=== PATIENT | female | born 1955 | race Caucasian/White ===

== ENCOUNTER 2024-03-20 21:01 | Inpatient (IN) | payer OTHER, MEDICAID ==
[~2024-03-20] VITALS: Ht 154.9 cm; Wt 39.0 kg
[2024-03-20 21:23] VITALS: BP_SYST 134; PULSE 103; RESP 16; TEMP 98.3; O2SAT 99
[2024-03-21 00:42] LABS: EOSINOPHILS % (AUTO) 0.4 % (0.0-4.0); NEUTROPHILS # (AUTO) 11.2 K/uL (1.8-7.7); PLATELET COUNT (AUTO) 250 K/uL (130-430)
[2024-03-21 00:58] LABS: BASOPHILS % (AUTO) 0.4 % (0.0-2.0); EOSINOPHILS # (AUTO) 0.1 K/uL (0.0-0.4); INR 1.1 (0.8-1.2); LYMPHOCYTES # (AUTO) 0.5 K/uL (1.0-5.5); LYMPHOCYTES % (AUTO) 3.8 % (20.5-51.5); MEAN CORPUSCULAR HEMOGLOBIN 25 pg (27-31); MEAN CORPUSCULAR HGB CONC 33 % (32-36); MEAN CORPUSCULAR VOLUME 78 fL (79.0-98.0); MONOCYTES # (AUTO) 0.8 K/uL (0.0-1.0); MONOCYTES % (AUTO) 6.1 % (1.7-9.3); NEUTROPHILS % (AUTO) 89.3 % (40.0-70.0); PROTHROMBIN TIME 11.1 SECS (9.5-12.5); RED BLOOD CELL COUNT(AUTO) 2.58 MIL/uL (4.2-6.2); RED CELL DISTRIBUTION WIDTH 20.1 % (9.0-15.0); WHITE BLOOD COUNT (AUTO) 12.5 K/uL (4.8-10.8)
[2024-03-21 01:01] LABS: ALBUMIN 2.2 g/dL (3.4-4.8); BILIRUBIN,DIRECT 0.1 mg/dL (0.0-0.3); CALCIUM 8.7 mg/dL (8.4-11.0); CREATININE 1.29 mg/dL (0.55-1.30); TOTAL BILIRUBIN 0.4 mg/dL (0.0-1.0); TOTAL PROTEIN, SERUM 7.2 g/dL (6.4-8.3)
[2024-03-21 01:03] LABS: HEMOGLOBIN 6.5 g/dL (12.0-16.0)
[2024-03-21] MEDS ORDERED: cefTRIAXone 1 GM VIAL IV ONE (02:15)
[2024-03-21] MEDS: cefTRIAXone 1 GM IVPB PREMIX 50 ML IV ONE (02:57)
[2024-03-21 03:01] LABS: INR 1.1 (0.8-1.2)
[2024-03-21] MEDS: NACL 0.9% 1,000 ML IV SCH (03:01)
[2024-03-21 10:17] LABS: BASOPHILS # (AUTO) 0.1 K/uL (0.0-0.2); BASOPHILS % (AUTO) 0.5 % (0.0-2.0); EOSINOPHILS # (AUTO) 0.1 K/uL (0.0-0.4); EOSINOPHILS % (AUTO) 0.5 % (0.0-4.0); HEMATOCRIT 24.6 % (36-48); HEMOGLOBIN 8.4 g/dL (12.0-16.0); LYMPHOCYTES # (AUTO) 0.5 K/uL (1.0-5.5); LYMPHOCYTES % (AUTO) 4.5 % (20.5-51.5); MEAN CORPUSCULAR HEMOGLOBIN 27 pg (27-31); MEAN CORPUSCULAR HGB CONC 34 % (32-36); MEAN CORPUSCULAR VOLUME 80 fL (79.0-98.0); MONOCYTES # (AUTO) 0.5 K/uL (0.0-1.0); MONOCYTES % (AUTO) 4.4 % (1.7-9.3); NEUTROPHILS # (AUTO) 10.9 K/uL (1.8-7.7); NEUTROPHILS % (AUTO) 90.1 % (40.0-70.0); PLATELET COUNT (AUTO) 260 K/uL (130-430); RED BLOOD CELL COUNT(AUTO) 3.06 MIL/uL (4.2-6.2); RED CELL DISTRIBUTION WIDTH 19.2 % (9.0-15.0); WHITE BLOOD COUNT (AUTO) 12.1 K/uL (4.8-10.8)
[2024-03-21 10:39] LABS: ALBUMIN 2.3 g/dL (3.4-4.8); CALCIUM 8.8 mg/dL (8.4-11.0); CREATININE 1.13 mg/dL (0.55-1.30); POTASSIUM 3.7 mmol/L (3.5-5.1); TOTAL BILIRUBIN 0.7 mg/dL (0.0-1.0); TOTAL PROTEIN, SERUM 7.4 g/dL (6.4-8.3)
[2024-03-21 12:00] VITALS: BP_SYST 153; PULSE 98; RESP 18; TEMP 97.7; O2SAT 98
[2024-03-21 15:15] VITALS: BP_SYST 152; PULSE 99; RESP 18; TEMP 98.4; O2SAT 99
[2024-03-21 20:00] VITALS: BP_SYST 142; PULSE 104; RESP 18; TEMP 98.9; O2SAT 98
[2024-03-22 00:21] VITALS: BP_SYST 118; PULSE 99; RESP 15; TEMP 97.9; O2SAT 98
[2024-03-22 07:31] LABS: BASOPHILS # (AUTO) 0.1 K/uL (0.0-0.2); BASOPHILS % (AUTO) 0.4 % (0.0-2.0); EOSINOPHILS # (AUTO) 0.1 K/uL (0.0-0.4); EOSINOPHILS % (AUTO) 0.7 % (0.0-4.0); HEMATOCRIT 23.7 % (36-48); HEMOGLOBIN 7.5 g/dL (12.0-16.0); LYMPHOCYTES # (AUTO) 0.5 K/uL (1.0-5.5); LYMPHOCYTES % (AUTO) 4.3 % (20.5-51.5); MEAN CORPUSCULAR HEMOGLOBIN 25 pg (27-31); MEAN CORPUSCULAR HGB CONC 32 % (32-36); MEAN CORPUSCULAR VOLUME 80 fL (79.0-98.0); MONOCYTES # (AUTO) 0.6 K/uL (0.0-1.0); MONOCYTES % (AUTO) 5.5 % (1.7-9.3); NEUTROPHILS # (AUTO) 10.4 K/uL (1.8-7.7); NEUTROPHILS % (AUTO) 89.1 % (40.0-70.0); PLATELET COUNT (AUTO) 262 K/uL (130-430); RED BLOOD CELL COUNT(AUTO) 2.95 MIL/uL (4.2-6.2); RED CELL DISTRIBUTION WIDTH 19.2 % (9.0-15.0); RETICULOCYTE COUNT 2.1 % (0.5-1.5); WHITE BLOOD COUNT (AUTO) 11.6 K/uL (4.8-10.8)
[2024-03-22 08:24] LABS: ALBUMIN 2.1 g/dL (3.4-4.8); CALCIUM 8.7 mg/dL (8.4-11.0); CREATININE 0.89 mg/dL (0.55-1.30); PHOSPHORUS 3.7 mg/dL (2.7-4.5); POTASSIUM 3.3 mmol/L (3.5-5.1); TOTAL BILIRUBIN 0.3 mg/dL (0.0-1.0)
[2024-03-22 08:32] LABS: TOTAL IRON BIND. CAPACITY 178 ug/dL (250-450)
[2024-03-22 08:45] VITALS: BP_SYST 136; PULSE 97; RESP 16; TEMP 98.2; O2SAT 100
[2024-03-22 11:34] VITALS: BP_SYST 135; PULSE 91; RESP 16; TEMP 97.7; O2SAT 93
[2024-03-22] MEDS: SOD FERRIC GLUC COMPLEX/SUC 125 MG in NS 100 ML IV SCH (15:00)
[2024-03-22 16:00] VITALS: BP_SYST 144; PULSE 95; RESP 16; TEMP 97.1; O2SAT 96
[2024-03-22] MEDS: NEPHROVITE, (FOLIC ACID/VITAMIN B COMP W-C 1 TAB) PO ONE (19:15)
[2024-03-22] MEDS: PANTOPRAZOLE SODIUM 40 MG/VIAL (PROTONIX) IVP ONE (19:16)
[2024-03-22 20:00] VITALS: BP_SYST 158; PULSE 89; RESP 16; TEMP 97.9; O2SAT 89
[2024-03-22] MEDS: POTASSIUM CHLORIDE 20 MEQ TABLET.ER PO ONE (22:53)
[2024-03-23] VITALS: BP_SYST 151; PULSE 91; RESP 16; TEMP 97.8; O2SAT 100
[2024-03-23 07:24] VITALS: BP_SYST 153; PULSE 96; RESP 16; TEMP 97.2; O2SAT 100
[2024-03-23] MEDS: NEPHROVITE, (FOLIC ACID/VITAMIN B COMP W-C 1 TAB) PO SCH (08:38)
[2024-03-23] MEDS: PANTOPRAZOLE SODIUM 40 MG/VIAL (PROTONIX) IVP SCH (08:42)
[2024-03-23 11:13] VITALS: BP_SYST 147; PULSE 76; RESP 15; TEMP 97.4; O2SAT 100
[2024-03-23 16:49] VITALS: BP_SYST 141; PULSE 79; RESP 15; TEMP 97.8; O2SAT 100
[2024-03-23 18:51] VITALS: BP_SYST 152; PULSE 66; RESP 16; TEMP 97.5; O2SAT 100
[2024-03-24] VITALS: BP_SYST 157; PULSE 101; RESP 16; TEMP 97.6; O2SAT 98
[2024-03-24 07:17] LABS: BASOPHILS # (AUTO) 0.1 K/uL (0.0-0.2); BASOPHILS % (AUTO) 0.5 % (0.0-2.0); EOSINOPHILS # (AUTO) 0.1 K/uL (0.0-0.4); EOSINOPHILS % (AUTO) 0.9 % (0.0-4.0); HEMATOCRIT 27.4 % (36-48); HEMOGLOBIN 8.4 g/dL (12.0-16.0); LYMPHOCYTES # (AUTO) 0.6 K/uL (1.0-5.5); LYMPHOCYTES % (AUTO) 4.3 % (20.5-51.5); MEAN CORPUSCULAR HEMOGLOBIN 25 pg (27-31); MEAN CORPUSCULAR HGB CONC 31 % (32-36); MEAN CORPUSCULAR VOLUME 81 fL (79.0-98.0); MONOCYTES # (AUTO) 0.6 K/uL (0.0-1.0); NEUTROPHILS # (AUTO) 12.8 K/uL (1.8-7.7); NEUTROPHILS % (AUTO) 90.3 % (40.0-70.0); PLATELET COUNT (AUTO) 242 K/uL (130-430); RED BLOOD CELL COUNT(AUTO) 3.37 MIL/uL (4.2-6.2); RED CELL DISTRIBUTION WIDTH 19.2 % (9.0-15.0); WHITE BLOOD COUNT (AUTO) 14.2 K/uL (4.8-10.8)
[2024-03-24 07:39] LABS: ALBUMIN 2.2 g/dL (3.4-4.8); CALCIUM 8.7 mg/dL (8.4-11.0); CREATININE 0.71 mg/dL (0.55-1.30); PHOSPHORUS 3.5 mg/dL (2.7-4.5); POTASSIUM 3.3 mmol/L (3.5-5.1); TOTAL BILIRUBIN 0.3 mg/dL (0.0-1.0); TOTAL PROTEIN, SERUM 7.3 g/dL (6.4-8.3)
[2024-03-24 08:00] VITALS: BP_SYST 157; PULSE 93; RESP 18; TEMP 97; O2SAT 97; O2SAT 98
[2024-03-24] MEDS: FOLIC ACID 1 MG TABLET PO SCH (09:00)
[2024-03-24] MEDS ORDERED: LIDOCAINE 1%, 20 ML MDV 20 ML ONE (09:19)
[2024-03-24 11:06] VITALS: BP_SYST 154; PULSE 92; RESP 16; TEMP 97.4; O2SAT 95
[2024-03-24] MEDS: POTASSIUM CHLORIDE 40 MEQ, LIDOCAINE JECT 2% PF 100 MG 75 MG in NS 250 ML IV ONE (13:27)
[2024-03-24 16:05] VITALS: BP_SYST 150; PULSE 89; RESP 15; TEMP 97.5; O2SAT 95
[2024-03-24] MEDS: D5/0.45 NS 1,000 ML IV SCH (18:21)
[2024-03-24 19:00] VITALS: O2SAT 95
[2024-03-24 20:00] VITALS: BP_SYST 193; PULSE 100; RESP 16; TEMP 97.1; O2SAT 95
[2024-03-24] MEDS: amLODIPine BESYLATE 10 MG TABLET PO ONE (20:15)
[2024-03-25] VITALS: BP_SYST 183; PULSE 103; RESP 16; TEMP 97.2; O2SAT 95
[2024-03-25] MEDS: PIPERACILLIN/TAZOBACTAM 3.375 GM/VIAL (ZOSYN) IV ONE ×2 (00:05→05:30)
[2024-03-25] MEDS: PIPERACILLIN/TAZO 3.375 GM in NS 50 ML IV SCH (00:14)
[2024-03-25] MEDS: MAGNESIUM SULFATE 50 ML IV ONE (00:15)
[2024-03-25] MEDS: hydrALAZINE HCL 20 MG/ML VIAL IVP PRN (00:43)
[2024-03-25] MEDS ORDERED: iohexoL 240 mgI/mL, 50 ML INFUS..BTL IV ONE (08:01)
[2024-03-25 08:03] LABS: BASOPHILS % (AUTO) 0.1 % (0.0-2.0); HEMATOCRIT 27.8 % (36-48); HEMOGLOBIN 8.6 g/dL (12.0-16.0); LYMPHOCYTES # (AUTO) 0.2 K/uL (1.0-5.5); LYMPHOCYTES % (AUTO) 0.7 % (20.5-51.5); MEAN CORPUSCULAR HEMOGLOBIN 25 pg (27-31); MEAN CORPUSCULAR HGB CONC 31 % (32-36); MEAN CORPUSCULAR VOLUME 80 fL (79.0-98.0); MONOCYTES # (AUTO) 0.8 K/uL (0.0-1.0); MONOCYTES % (AUTO) 2.8 % (1.7-9.3); NEUTROPHILS # (AUTO) 28.5 K/uL (1.8-7.7); NEUTROPHILS % (AUTO) 96.4 % (40.0-70.0); PLATELET COUNT (AUTO) 230 K/uL (130-430); RED BLOOD CELL COUNT(AUTO) 3.47 MIL/uL (4.2-6.2); RED CELL DISTRIBUTION WIDTH 19.8 % (9.0-15.0); WHITE BLOOD COUNT (AUTO) 29.6 K/uL (4.8-10.8)
[2024-03-25 08:15] VITALS: BP_SYST 120; PULSE 98; RESP 18; TEMP 96.3; O2SAT 100
[2024-03-25 08:16] LABS: ALBUMIN 2.3 g/dL (3.4-4.8); CALCIUM 8.9 mg/dL (8.4-11.0); CREATININE 1.02 mg/dL (0.55-1.30); TOTAL BILIRUBIN 0.5 mg/dL (0.0-1.0); TOTAL PROTEIN, SERUM 7.5 g/dL (6.4-8.3)
[2024-03-25] MEDS: amLODIPine BESYLATE 5 MG TABLET PO SCH (09:00)
[2024-03-25] MEDS ORDERED: amLODIPine BESYLATE 5 MG TABLET PO SCH (09:00)
[2024-03-25 09:15] VITALS: O2SAT 100
[2024-03-25] MEDS ORDERED: LABETALOL HCL 20 MG/4 ML CARTRIDGE IVP PRN (09:45)
[2024-03-25 11:16] VITALS: BP_SYST 123; PULSE 90; RESP 16; TEMP 96.4; O2SAT 94
[2024-03-25] MEDS: POTASSIUM CHLORIDE 40 MEQ, LIDOCAINE JECT 2% PF 100 MG 75 MG in NS 250 ML IV ONE (11:37)
[2024-03-25] MEDS ORDERED: fentaNYL CITRATE/PF 100 MCG/2 ML AMP IVP PRN ×2 (13:15)
[2024-03-25] MEDS ORDERED: ONDANSETRON HCL 4 MG/2 ML VIAL IVP PRN (13:15)
[2024-03-25] MEDS ORDERED: NS 100 ML BAG ONE (13:53)
[2024-03-25] MEDS ORDERED: NS IRRIG SOLN 1000 ML IR ONE (13:53)
[2024-03-25] MEDS ORDERED: PROPOFOL 200MG/ 20ML VIAL (DIPRIVAN) IV ONE (13:53)
[2024-03-25] MEDS ORDERED: ceFAZolin SODIUM 1 GM VIAL ONE (13:53)
[2024-03-25] MEDS: LR 1,000 ML IV ONE (14:05)
[2024-03-25] MEDS: fentaNYL CITRATE/PF 100 MCG/2 ML AMP ONE (14:14)
[2024-03-25] MEDS: fentaNYL CITRATE/PF 100 MCG/2 ML AMP IVP PRN (14:14)
[2024-03-25 15:15] VITALS: BP_SYST 141; PULSE 89; RESP 16; TEMP 96.1; O2SAT 100
[2024-03-25 20:20] VITALS: BP_SYST 137; PULSE 83; RESP 18; TEMP 96.3; O2SAT 100
[2024-03-26 00:11] VITALS: BP_SYST 123; PULSE 95; RESP 16; TEMP 96.1; O2SAT 100
[2024-03-26 07:58] VITALS: BP_SYST 109; PULSE 95; RESP 20; TEMP 96.9; O2SAT 100
[2024-03-26 08:45] VITALS: O2SAT 100
[2024-03-26] MEDS: IBUPROFEN 400 MG TABLET PO ONE (10:17)
[2024-03-26 11:02] VITALS: BP_SYST 128; PULSE 95; RESP 16; TEMP 97.4; O2SAT 96
[2024-03-26] MEDS: IBUPROFEN 400 MG TABLET PO SCH (14:09)
[2024-03-26 15:15] VITALS: BP_SYST 133; PULSE 101; RESP 16; TEMP 97.7; O2SAT 93
[2024-03-26 20:20] VITALS: BP_SYST 118; PULSE 94; RESP 18; TEMP 97.6; O2SAT 97
[2024-03-26 20:39] LABS: BASOPHILS % (AUTO) 0.1 % (0.0-2.0); EOSINOPHILS # (AUTO) 0.1 K/uL (0.0-0.4); EOSINOPHILS % (AUTO) 0.7 % (0.0-4.0); HEMATOCRIT 22.7 % (36-48); HEMOGLOBIN 7.3 g/dL (12.0-16.0); LYMPHOCYTES # (AUTO) 0.5 K/uL (1.0-5.5); MEAN CORPUSCULAR HEMOGLOBIN 26 pg (27-31); MEAN CORPUSCULAR HGB CONC 32 % (32-36); MEAN CORPUSCULAR VOLUME 80 fL (79.0-98.0); MONOCYTES # (AUTO) 0.8 K/uL (0.0-1.0); MONOCYTES % (AUTO) 4.6 % (1.7-9.3); NEUTROPHILS # (AUTO) 16.4 K/uL (1.8-7.7); NEUTROPHILS % (AUTO) 91.6 % (40.0-70.0); PLATELET COUNT (AUTO) 160 K/uL (130-430); RED BLOOD CELL COUNT(AUTO) 2.85 MIL/uL (4.2-6.2); WHITE BLOOD COUNT (AUTO) 17.9 K/uL (4.8-10.8)
[2024-03-26 20:57] LABS: PHOSPHORUS 4.1 mg/dL (2.7-4.5)
[2024-03-26 20:59] LABS: ALBUMIN 1.8 g/dL (3.4-4.8); CALCIUM 8.2 mg/dL (8.4-11.0); CREATININE 1.23 mg/dL (0.55-1.30); POTASSIUM 3.4 mmol/L (3.5-5.1); TOTAL BILIRUBIN 0.3 mg/dL (0.0-1.0); TOTAL PROTEIN, SERUM 6.1 g/dL (6.4-8.3)
[2024-03-27 00:19] VITALS: BP_SYST 138; PULSE 95; RESP 19; TEMP 98.9; O2SAT 95
[2024-03-27 07:55] VITALS: BP_SYST 129; PULSE 89; RESP 15; TEMP 97.3; O2SAT 100
[2024-03-27 11:02] VITALS: BP_SYST 130; PULSE 90; RESP 16; TEMP 98.4; O2SAT 100
[2024-03-27 16:15] VITALS: BP_SYST 123; PULSE 86; RESP 16; TEMP 98.2; O2SAT 100
[2024-03-27 16:39] LABS: BASOPHILS % (AUTO) 0.2 % (0.0-2.0); EOSINOPHILS # (AUTO) 0.1 K/uL (0.0-0.4); EOSINOPHILS % (AUTO) 0.6 % (0.0-4.0); HEMOGLOBIN 7.7 g/dL (12.0-16.0); LYMPHOCYTES # (AUTO) 0.8 K/uL (1.0-5.5); LYMPHOCYTES % (AUTO) 4.9 % (20.5-51.5); MEAN CORPUSCULAR HEMOGLOBIN 26 pg (27-31); MEAN CORPUSCULAR HGB CONC 31 % (32-36); MONOCYTES # (AUTO) 0.9 K/uL (0.0-1.0); MONOCYTES % (AUTO) 5.2 % (1.7-9.3); NEUTROPHILS # (AUTO) 14.8 K/uL (1.8-7.7); NEUTROPHILS % (AUTO) 89.1 % (40.0-70.0); PLATELET COUNT (AUTO) 160 K/uL (130-430); RED BLOOD CELL COUNT(AUTO) 2.97 MIL/uL (4.2-6.2); RED CELL DISTRIBUTION WIDTH 21.2 % (9.0-15.0); WHITE BLOOD COUNT (AUTO) 16.6 K/uL (4.8-10.8)
[2024-03-27 16:44] LABS: MEAN CORPUSCULAR VOLUME 84 fL (79.0-98.0)
[2024-03-27 17:33] LABS: ALBUMIN 1.8 g/dL (3.4-4.8); CALCIUM 8.4 mg/dL (8.4-11.0); CREATININE 1.17 mg/dL (0.55-1.30); POTASSIUM 3.3 mmol/L (3.5-5.1); TOTAL BILIRUBIN 0.3 mg/dL (0.0-1.0); TOTAL PROTEIN, SERUM 6.9 g/dL (6.4-8.3)
[2024-03-27 20:00] VITALS: BP_SYST 124; PULSE 98; RESP 16; TEMP 98; O2SAT 99
[2024-03-28] VITALS (8 sets, daily range): BP systolic 95–130; PULSE 84–97; RESP 16; TEMP 97.7–98.3; O2SAT 94–100
[2024-03-28 08:05] LABS: BASOPHILS % (AUTO) 0.2 % (0.0-2.0); EOSINOPHILS # (AUTO) 0.2 K/uL (0.0-0.4); EOSINOPHILS % (AUTO) 1.2 % (0.0-4.0); HEMATOCRIT 22.1 % (36-48); LYMPHOCYTES # (AUTO) 0.6 K/uL (1.0-5.5); LYMPHOCYTES % (AUTO) 3.8 % (20.5-51.5); MEAN CORPUSCULAR HEMOGLOBIN 26 pg (27-31); MEAN CORPUSCULAR HGB CONC 31 % (32-36); MEAN CORPUSCULAR VOLUME 82 fL (79.0-98.0); MONOCYTES # (AUTO) 0.6 K/uL (0.0-1.0); MONOCYTES % (AUTO) 4.4 % (1.7-9.3); NEUTROPHILS # (AUTO) 13.2 K/uL (1.8-7.7); NEUTROPHILS % (AUTO) 90.4 % (40.0-70.0); PLATELET COUNT (AUTO) 133 K/uL (130-430); RED CELL DISTRIBUTION WIDTH 20.5 % (9.0-15.0); WHITE BLOOD COUNT (AUTO) 14.6 K/uL (4.8-10.8)
[2024-03-28] MEDS: POTASSIUM CHLORIDE 20 MEQ TABLET.ER PO ONE (10:20)
[2024-03-28 13:54] LABS: HEMOGLOBIN 6.9 g/dL (12.0-16.0)
[2024-03-28] MEDS ORDERED: LORazepam 1 MG TABLET PO PRN (15:00)
[2024-03-28] MEDS ORDERED: traZODone HCL 50 MG TABLET (DESYREL) PO PRN (15:00)
[2024-03-28] MEDS: ERTAPENEM SODIUM 0.5 GM in NS 50 ML IV SCH (17:29)
[2024-03-28] MEDS ORDERED: MEROPENEM 1 GM in NS 100 ML IV SCH (22:00)
[2024-03-29] VITALS: BP_SYST 132; PULSE 92; RESP 16; TEMP 98.1; O2SAT 98
[2024-03-29 04:28] VITALS: RESP 16; O2SAT 98
[2024-03-29 08:00] VITALS: BP_SYST 140; PULSE 66; RESP 18; TEMP 96.7; O2SAT 98
[2024-03-29 08:18] LABS: BASOPHILS % (AUTO) 0.1 % (0.0-2.0); EOSINOPHILS # (AUTO) 0.1 K/uL (0.0-0.4); EOSINOPHILS % (AUTO) 0.8 % (0.0-4.0); HEMATOCRIT 29.3 % (36-48); HEMOGLOBIN 9.1 g/dL (12.0-16.0); LYMPHOCYTES # (AUTO) 0.7 K/uL (1.0-5.5); LYMPHOCYTES % (AUTO) 4.6 % (20.5-51.5); MEAN CORPUSCULAR HEMOGLOBIN 26 pg (27-31); MEAN CORPUSCULAR HGB CONC 31 % (32-36); MEAN CORPUSCULAR VOLUME 83 fL (79.0-98.0); MONOCYTES # (AUTO) 0.6 K/uL (0.0-1.0); NEUTROPHILS # (AUTO) 13.9 K/uL (1.8-7.7); NEUTROPHILS % (AUTO) 90.5 % (40.0-70.0); PLATELET COUNT (AUTO) 139 K/uL (130-430); RED BLOOD CELL COUNT(AUTO) 3.52 MIL/uL (4.2-6.2); WHITE BLOOD COUNT (AUTO) 15.3 K/uL (4.8-10.8)
[2024-03-29 08:41] LABS: CALCIUM 8.3 mg/dL (8.4-11.0); CREATININE 1.2 mg/dL (0.55-1.30)
[2024-03-29 08:55] LABS: PROTHROMBIN TIME 10.4 SECS (9.5-12.5)
[2024-03-29 09:10] LABS: POTASSIUM 2.3 mmol/L (3.5-5.1)
[2024-03-29] MEDS ORDERED: KCL 20 mEq in D5/0.45NS 1000mL 1,000 ML IV SCH (09:45)
[2024-03-29] MEDS: POTASSIUM CHLORIDE 20 MEQ TABLET.ER PO ONE (11:03)
[2024-03-29] MEDS: KCL 20 mEq in 100 mL (PREMIX) 100 ML IV ONE (11:03)
[2024-03-29 11:15] VITALS: BP_SYST 154; PULSE 95; RESP 16; TEMP 98.5; O2SAT 96
[2024-03-29] MEDS: amLODIPine BESYLATE 5 MG TABLET PO ONE (14:56)
[2024-03-29] MEDS: KCL 40 mEq in 100 mL (PREMIX) 100 ML IV ONE (14:57)
[2024-03-29 15:06] VITALS: BP_SYST 145; PULSE 96; RESP 16; TEMP 98.9; O2SAT 97
[2024-03-29] MEDS ORDERED: hydrALAZINE HCL 25 MG TABLET PO PRN (15:15)
[2024-03-29 20:00] VITALS: BP_SYST 148; PULSE 109; RESP 16; TEMP 98.9; O2SAT 98
[2024-03-29] MEDS: traMADol HCL HCL 50 MG TABLET (ULTRAM) PO PRN (22:49)
[2024-03-30 00:11] VITALS: BP_SYST 150; PULSE 104; RESP 17; TEMP 99.6; O2SAT 97
[2024-03-30 07:09] LABS: BASOPHILS % (AUTO) 0.2 % (0.0-2.0); EOSINOPHILS # (AUTO) 0.2 K/uL (0.0-0.4); EOSINOPHILS % (AUTO) 1.5 % (0.0-4.0); HEMATOCRIT 29.5 % (36-48); HEMOGLOBIN 9.1 g/dL (12.0-16.0); LYMPHOCYTES # (AUTO) 0.7 K/uL (1.0-5.5); LYMPHOCYTES % (AUTO) 5.2 % (20.5-51.5); MEAN CORPUSCULAR HEMOGLOBIN 26 pg (27-31); MEAN CORPUSCULAR HGB CONC 31 % (32-36); MEAN CORPUSCULAR VOLUME 83 fL (79.0-98.0); MONOCYTES # (AUTO) 0.8 K/uL (0.0-1.0); MONOCYTES % (AUTO) 5.5 % (1.7-9.3); NEUTROPHILS # (AUTO) 12.4 K/uL (1.8-7.7); NEUTROPHILS % (AUTO) 87.6 % (40.0-70.0); PLATELET COUNT (AUTO) 147 K/uL (130-430); RED BLOOD CELL COUNT(AUTO) 3.55 MIL/uL (4.2-6.2); RED CELL DISTRIBUTION WIDTH 20.7 % (9.0-15.0); WHITE BLOOD COUNT (AUTO) 14.2 K/uL (4.8-10.8)
[2024-03-30 07:25] LABS: CALCIUM 8.2 mg/dL (8.4-11.0); CREATININE 1.26 mg/dL (0.55-1.30); POTASSIUM 3.2 mmol/L (3.5-5.1)
[2024-03-30] MEDS: KCL 20 mEq in 100 mL (PREMIX) 100 ML IV ONE (12:34)
[2024-03-30] MEDS: amLODIPine BESYLATE 5 MG TABLET PO ONE (12:35)
[2024-03-30 12:48] VITALS: BP_SYST 126; PULSE 98; RESP 16; TEMP 98.6; O2SAT 99
[2024-03-30] MEDS: MAGNESIUM SULFATE 50 ML IV ONE (14:19)
[2024-03-30] MEDS ORDERED: NORMAL SALINE 10 ML VIAL ONE (14:52)
[2024-03-30] MEDS ORDERED: IOHEXOL 300 mgI/mL, 50 mL INFUS..BTL IV ONE (14:52)
[2024-03-30] MEDS ORDERED: LIDOCAINE 1% 10 MG/ML, 20 ML MDV ONE (14:52)
[2024-03-30 17:06] VITALS: BP_SYST 144; PULSE 95; RESP 18; TEMP 98.5; O2SAT 100
[2024-03-30 20:00] VITALS: BP_SYST 135; PULSE 98; RESP 16; TEMP 99.6; O2SAT 98
[2024-03-31 00:06] VITALS: BP_SYST 135; PULSE 98; RESP 17; TEMP 98.8; O2SAT 97
[2024-03-31 05:26] LABS: BASOPHILS % (AUTO) 0.2 % (0.0-2.0); EOSINOPHILS # (AUTO) 0.2 K/uL (0.0-0.4); EOSINOPHILS % (AUTO) 1.7 % (0.0-4.0); HEMATOCRIT 29.3 % (36-48); LYMPHOCYTES # (AUTO) 0.8 K/uL (1.0-5.5); LYMPHOCYTES % (AUTO) 5.6 % (20.5-51.5); MEAN CORPUSCULAR HEMOGLOBIN 26 pg (27-31); MEAN CORPUSCULAR HGB CONC 31 % (32-36); MEAN CORPUSCULAR VOLUME 84 fL (79.0-98.0); MONOCYTES # (AUTO) 0.8 K/uL (0.0-1.0); MONOCYTES % (AUTO) 5.6 % (1.7-9.3); NEUTROPHILS % (AUTO) 86.9 % (40.0-70.0); PLATELET COUNT (AUTO) 144 K/uL (130-430); RED CELL DISTRIBUTION WIDTH 21.8 % (9.0-15.0); WHITE BLOOD COUNT (AUTO) 13.8 K/uL (4.8-10.8)
[2024-03-31 06:15] LABS: CALCIUM 8.6 mg/dL (8.4-11.0); CREATININE 1.78 mg/dL (0.55-1.30); POTASSIUM 4.6 mmol/L (3.5-5.1)
[2024-03-31 08:00] VITALS: BP_SYST 144; PULSE 76; RESP 16; TEMP 97.5; O2SAT 96
[2024-03-31] MEDS ORDERED: NACL 0.9% 500 ML IV SCH (09:45)
[2024-03-31] MEDS ORDERED: ERTA1VIA3 INJ (11:14)
[2024-03-31] MEDS ORDERED: AMLO5TAB4 PO (11:14)
[2024-03-31] MEDS ORDERED: TRAM50TA2 PO (11:14)
[2024-03-31] MEDS ORDERED: PRO40 PO (11:14)
[2024-03-31 11:16] VITALS: BP_SYST 113; PULSE 91; RESP 16; TEMP 97.9; O2SAT 96
[2024-03-31] MEDS: amLODIPine BESYLATE 5 MG TABLET PO SCH (11:35)
[2024-03-31] MEDS: NS 500 ML IV ONE (11:35)
[2024-03-31] MEDS: PANTOPRAZOLE SODIUM 40 MG TAB PO SCH (11:42)
[2024-03-31] MEDS: HYDROmorphone 1 MG/ML INJ. CARTRIDGE IVP ONE (12:34)
[2024-03-31 15:27] VITALS: BP_SYST 149; PULSE 73; RESP 16; TEMP 98.6; O2SAT 96
[2024-03-31] MEDS: HYDROmorphone 1 MG/ML INJ. CARTRIDGE IVP PRN (16:28)
[2024-03-31 20:40] VITALS: BP_SYST 139; PULSE 88; RESP 20; TEMP 98.4; O2SAT 95
[2024-03-31 20:41] VITALS: O2SAT 95
[2024-04-01 00:06] VITALS: BP_SYST 144; PULSE 88; RESP 17; TEMP 98.2; O2SAT 94
[2024-04-01 08:41] LABS: CALCIUM 8.7 mg/dL (8.4-11.0); CREATININE 1.45 mg/dL (0.55-1.30); POTASSIUM 3.7 mmol/L (3.5-5.1)
[2024-04-01 08:55] VITALS: BP_SYST 123; PULSE 102; TEMP 98.4; O2SAT 100
[2024-04-01 08:57] LABS: BASOPHILS % (AUTO) 0.2 % (0.0-2.0); EOSINOPHILS # (AUTO) 0.2 K/uL (0.0-0.4); EOSINOPHILS % (AUTO) 1.1 % (0.0-4.0); HEMATOCRIT 31.6 % (36-48); HEMOGLOBIN 9.7 g/dL (12.0-16.0); LYMPHOCYTES # (AUTO) 0.7 K/uL (1.0-5.5); LYMPHOCYTES % (AUTO) 4.9 % (20.5-51.5); MEAN CORPUSCULAR HEMOGLOBIN 26 pg (27-31); MEAN CORPUSCULAR HGB CONC 31 % (32-36); MEAN CORPUSCULAR VOLUME 84 fL (79.0-98.0); MONOCYTES # (AUTO) 0.6 K/uL (0.0-1.0); MONOCYTES % (AUTO) 3.9 % (1.7-9.3); NEUTROPHILS # (AUTO) 12.9 K/uL (1.8-7.7); NEUTROPHILS % (AUTO) 89.9 % (40.0-70.0); PLATELET COUNT (AUTO) 166 K/uL (130-430); RED BLOOD CELL COUNT(AUTO) 3.77 MIL/uL (4.2-6.2); RED CELL DISTRIBUTION WIDTH 21.3 % (9.0-15.0); WHITE BLOOD COUNT (AUTO) 14.3 K/uL (4.8-10.8)
[2024-04-01 11:04] VITALS: BP_SYST 149; PULSE 100; RESP 15; TEMP 97.7; O2SAT 95
[2024-04-01] MEDS ORDERED: traMADol HCL HCL 50 MG TABLET (ULTRAM) PO PRN (12:15)
[2024-04-01 14:54] VITALS: BP_SYST 132; PULSE 103; RESP 16; TEMP 97.1; O2SAT 93
[2024-04-01 15:07] VITALS: BP_SYST 132; PULSE 103; RESP 16; TEMP 97.1; O2SAT 93
[2024-04-02] MEDS ORDERED: amLODIPine BESYLATE 5 MG TABLET PO SCH (09:00)
[2024-04-02] MEDS ORDERED: PANTOPRAZOLE SODIUM 40 MG TAB PO SCH (09:00)
== END 2024-04-01 16:30 | DRG 871 ==
LOC: SED 21:01 → STU 03-21 02:01 → SMU 03-23 17:47 → STU 03-25 17:31 → SMU 03-26 10:30
PROVIDERS: ADMIT Student in an Organized Health Care Education/Training Program; ATTEND Student in an Organized Health Care Education/Training Program
PROC: 30233N1 Transfusion of Nonautologous Red Blood Cells into Peripheral Vein, Percutaneous Approach (ICD-10-PCS; principal; 2024-03-21)
PROC: 0TP5X0Z Removal of Drainage Device from Kidney, External Approach (ICD-10-PCS; 2024-03-25)
PROC: 0T9330Z Drainage of Right Kidney Pelvis with Drainage Device, Percutaneous Approach (ICD-10-PCS; 2024-03-25)
PROC: 0T25X0Z Change Drainage Device in Kidney, External Approach (ICD-10-PCS; 2024-03-25)
DX: A41.9 Sepsis, unspecified organism (principal); E43 Unspecified severe protein-calorie malnutrition; J18.1 Lobar pneumonia, unspecified organism; N13.30 Unspecified hydronephrosis; E87.1 Hypo-osmolality and hyponatremia; N17.9 Acute kidney failure, unspecified; N12 Tubulo-interstitial nephritis, not specified as acute or chronic; Z68.1 Body mass index [BMI] 19.9 or less, adult; C79.9 Secondary malignant neoplasm of unspecified site; C64.9 Malignant neoplasm of unspecified kidney, except renal pelvis; N99.522 Malfunction of incontinent external stoma of urinary tract; N99.528 Other complication of incontinent external stoma of urinary tract; E87.6 Hypokalemia; I10 Essential (primary) hypertension; Y83.8 Other surgical procedures as the cause of abnormal reaction of the patient, or of later complication, without mention of misadventure at the time of the procedure; D52.9 Folate deficiency anemia, unspecified; N28.89 Other specified disorders of kidney and ureter; Y82.8 Other medical devices associated with adverse incidents; Z51.5 Encounter for palliative care; Z88.8 Allergy status to other drugs, medicaments and biological substances; Z79.899 Other long term (current) drug therapy; Y92.239 Unspecified place in hospital as the place of occurrence of the external cause; C54.1 Malignant neoplasm of endometrium; D63.0 Anemia in neoplastic disease
CPT/HCPCS: 36415; 50432; 71045; 76000; 76001; 76770; 76942; 80048; 80053; 80076; 82272; 83540; 83550; 83690; 83735; 84100; 85025; 85044; 85610; 85730; 86886; 86900; 86901; 86920; 87070; 87075; 87081; 87186; 87230; 93005; 96365; 97110-GP; 97530-GP; 99285; C1729; C1750; G0378; J0360; J0690; J0696; J1170; J1335; J2001; J2470; J2543; J2704; J2916; J3010; J3475; J3480; J7050; J7060; P9021; Q9966; Q9967